=== PATIENT | male | born 1935 | race Caucasian/White ===

== ENCOUNTER 2019-02-22 07:55 | Inpatient (IN) | payer OTHER ==
[~2019-02-22] VITALS: Ht 170.2 cm; Wt 54.6 kg
[2019-02-22 08:11] VITALS: Ht 170.2 cm; Wt 54.6 kg
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
--- NOTE | 2019-02-22 08:23 | NUR ---
PT GIVEN TWO WARM BLANKETS FOR COLD EXTREMITIES. CALL LIGHT IN REACH. REITERATED TO PT THAT HE IS ON A HOLD - PT VERBALIZED UNDERSTANDING.
--- NOTE | 2019-02-22 08:46 | NUR ---
lab at bedside for blood draw
[2019-02-22 09:03] LABS: BASOPHIL % 0.7 % (0-2); PLATELET COUNT 183 x10^3mcL (130-400); RED CELL DISTRIBUTION WIDTH 13.2 % (11.5-14.5)
--- NOTE | 2019-02-22 09:15 | NUR ---
BREAKFAST TRAY PLACED TO PT BEDSIDE TABLE
[2019-02-22 09:18] LABS: CALCIUM 9.1 mg/dL (8.5-10.1); CARBON DIOXIDE 22.9 mmol/L (21-32); CHLORIDE SERUM 108 mmol/L (98-107); CREATININE SERUM 1.2 mg/dL (0.7-1.3); GLUCOSE SERUM 123 mg/dL (74-106); POTASSIUM SERUM 4.3 mmol/L (3.5-5.1); SODIUM SERUM 144 mmol/L (136-145)
--- NOTE | 2019-02-22 09:18 | NUR ---
PT FEEDING SELF APPROPRIATELY
[2019-02-22 09:22] LABS: ALBUMIN 3.7 g/dL (3.4-5.0); ALKALINE PHOSPHATASE 63 U/L (46-116); ALT/SGPT 19 U/L (16-63); AST/SGOT 33 U/L (15-37); BILIRUBIN TOTAL 1.4 mg/dL (0.20-1.00); TOTAL PROTEIN, SERUM 6.8 g/dL (6.4-8.2)
--- NOTE | 2019-02-22 09:47 | NUR ---
PT STILL EATING BREAKFAST TRAY FOOD AND PREPPING COFFEE FOR HIMSELF
--- NOTE | 2019-02-22 10:20 | NUR ---
PT ATE 100% OF BREAKFAST TRAY AND FULL AMT OF FLUIDS GIVEN
--- NOTE | 2019-02-22 10:20 | NUR ---
BED PLACED TO LOW FOWLERS POSITION. CALL LIGHT REMAINS IN REACH.
--- NOTE | 2019-02-22 10:25 | NUR ---
PER MOM, PT HAS BEEN USING DRUGS SINCE AGE 14, STARTING W/ PILLS & MARIJUANA. 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 NO PSYCH DX BUT WAS IN "[facility] IN [place]" WHEN [facility]. "NO ONE HAS HELPED HIM." PT REFUSING TO GO TO REHAB. MOTHER STATES HE CAME HOME EARLY THIS AM & WOKE HER UP. STATES "IT GOES IN A CYCLE." PT HAS "FEAR IN HIS EYES, CLUTCHED HIS CHEST & THEN HIS ABDOMEN, & HAS EPISODES OF PANTING." MOTHER STATES PT USED IN JUNE, STOPPED & WAS WORKING, & RELAPSED AGAIN 4 WEEKS AGO. OTHER FAMILY @ BEDSIDE STATES HE HAS BEEN DRINKING, TYPICALLY "TALL CANS." MOTHER STATES HE "SHUTS DOWN." MOTHER CALLED 911 THIS AM BECAUSE OF THE ABOVE & PT LOOKED PALE. MOTHER STATES HE HASN'T BEEN EATING OR DRINKING MUCH, & IS A HEAVY SMOKER. MSE BY DR. OTERO.
[2019-02-22 11:32] LABS: UA SPECIFIC GRAVITY >=1.030 (1.005-1.035); microscopic required? YES; urine erythrocyte 2+ (NEGATIVE)
--- NOTE | 2019-02-22 11:41 | NUR ---
AWAITING BLOOD CULTURE DRAW FOR ROCEPHIN TO BE STARTED. PT TAKEN TO CT SCAN VIA [facility] AT THIS TIME. PT WAS INCONTINENT TO BED SIL. CHANGED, CLEANED, AND TURNED TO L SIDE
--- NOTE | 2019-02-22 12:50 | NUR ---
PT SLEEPING, EASY TO AROUSE AWAKE; NAD NOTED
[2019-02-22 13:45] VITALS: BP 129/55
--- NOTE | 2019-02-22 14:18 | NUR ---
REPORT GIVEN TO SANDRA AGUILAR
[2019-02-22 15:11] VITALS: BP 126/62
--- NOTE | 2019-02-22 15:15 | NUR ---
RECEIVED PT FROM ED VIA LATIA. ORIENTED PT TO ROOM AND SURROUNDINGS. IV NOTED TO LFA PATENT AND INTACT. ENDORSED PT TO PRIMARY NURSE SANDRA
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
[2019-02-22 17:15] VITALS: BP 131/57
--- NOTE | 2019-02-22 19:01 | NUR ---
BED ALARM ON AND PATIENT GOT UP AND PULLED OUT THE IV. REMOVED THE DRESSING AND RESTARTED AFTER STAFF CLEANED THE BLOOD AND CHANGED HIM. PATIENT HAS BEEN INCONTINENT. SPOLE FIR A WHILE AND PTIENT STATES HE WAS FOR 27 YEARS TO THE LOVE OF HIS LIFE4. THEY DID NTO HAVE ANY CHILDREN.
--- NOTE | 2019-02-22 19:15 | NUR ---
REPORT RECEIVED FROM DAY SHIFT RN. PATIENT WAS SEEN AND IS RESTING COMFORTABLY IN BED. NO DISTRESS NOTED. BREATHING EVEN AND UNLABORED ON ROOM AIR. NO SOB OR RESP DISTRESS NOTED. A/OX2, CONFUSED. DENIES CHEST PAIN/PRESSURE. NO C/O PAIN. IV TO THE LFA INFUSING WELL. PATENT AND INTACT. NO REDNESS OR SWELLING NOTED. BED ALARM ON. ROOM NEAR NURSES STATION. COMFORT AND SAFETY MEASURES IN PLACE. BED IS LOCKED AND IN THE LOWEST POSITION. SIDE RAILS UP X2. CALL LIGHT IS WITHIN REACH. WILL CONTINUE TO MONITOR.
--- NOTE | 2019-02-22 20:30 | NUR ---
PATIENT IS TRYING TO GET OUT OF BED. AGITATED. NOTIFIED DR BERMAN. AWAITING ORDERS.
[2019-02-22 21:17] VITALS: BP 139/53
--- NOTE | 2019-02-22 23:24 | NUR ---
SAW MISSED LEVAQUIN DOSE AT 1700. NOTFIED DR BERMAN. SHE SAID IT'S OKAY THAT THE FRIST DOSE IS STARTED TOMORROW AT 1700.
--- NOTE | 2019-02-23 00:06 | NUR ---
RESTING IN BED QUIETLY. NO AGITATION NOTED. BREATHING EVEN AND UNLABORED ON ROOM AIR. NO SOB OR RESP DISTRESS NOTED. NO S/S OF PAIN NOTED. IVF INFUSING WELL. PATENT AND INTACT. NO REDNESS OR SWELLING NOTED. SAFETY MEASURES IN PLACE. NO DISTRESS NOTED. CALL LIGHT IS WITHIN REACH. ROOM NEAR NURSES STATION. WILL CONTINUE TO MONITOR.
--- NOTE | 2019-02-23 00:21 | NUR ---
RESTING IN BED WITH EYES CLOSED. NO DISTRESS NOTED. BREATHING EVEN AND UNLABORED ON ROOM AIR. NO SOB OR RESP DISTRESS NOTED. IVF INFUSING WELL. PATENT AND INTACT. SAFETY MEASURES IN PLACE. CALL LIGHT IS WITHIN REACH. WILL CONTINUE TO MONITOR.
--- NOTE | 2019-02-23 02:30 | NUR ---
CLEANED AND CHANGED PATIENT WAS JAC WOODARD. ALSO CHANGED BEDDING. TOLERATED WELL. REPOSITIONED TO COMFORT. NO DISTRESS NOTED. DENIES PAIN. SAFETY MEASURES IN PLACE. CALL LIGHT IS WITHIN REACH. WILL CONTINUE TO MONITOR.
[2019-02-23 05:38] VITALS: BP 127/52
[2019-02-23 06:34] LABS: BASOPHIL % 1.2 % (0-2); PLATELET COUNT 155 x10^3mcL (130-400); RED CELL DISTRIBUTION WIDTH 13.3 % (11.5-14.5)
--- NOTE | 2019-02-23 06:35 | NUR ---
RESTED THROUGHOUT THE NIGHT. NO ACUTE CHANGES NOTED. BREATHING EVEN AND UNLABORED ON ROOM AIR. NO SOB OR RESP DISTRESS NOTED. DENIES CHEST PAIN/PRESSURE. NO C/O PAIN THROUGHOUT THE NIGHT. IV TO THE LFA INFUSING WELL. PATENT AND INTACT. NO REDNESS OR SWELLING NOTED. CONFUSED AND FORGETFUL. SAFETY MEASURES IN PLACE. CALL LIGHT IS WITHIN REACH. WILL ENDORSE CARE TO DAY SHIFT RN
[2019-02-23 06:47] LABS: CALCIUM 8.8 mg/dL (8.5-10.1); CARBON DIOXIDE 24.5 mmol/L (21-32); CHLORIDE SERUM 111 mmol/L (98-107); CREATININE SERUM 1.1 mg/dL (0.7-1.3); GLUCOSE SERUM 77 mg/dL (74-106); MAGNESIUM 1.7 mg/dL (1.8-2.4); POTASSIUM SERUM 4.9 mmol/L (3.5-5.1); SODIUM SERUM 145 mmol/L (136-145)
--- NOTE | 2019-02-23 07:43 | NUR ---
A+OX2, NO RESPRIATORY DISTRESS NOTED, CONFUSED, SITTER AT BEDSIDE, MEDSURG, PULSES MODERATE AND EQUAL MARISOL, NO EDEMA NOTED, LUNG SOUNDS CTA, TOELRATING RA, BOWEL SOUNDS ACTIVE, INCONTINENT OF STOOL AND URINE, GENERALIZED WEAKNESS, ABRASION TO COXXYX, BUE, BLE, ERYTHEMA TO COCCYX WITH OPTIFOAM CDI, IV IN LFA WITH NS @ 100 ML/HR, SITE WNL.
[2019-02-23 09:07] VITALS: BP 116/59
--- NOTE | 2019-02-23 09:13 | NUR ---
PT RESTING IN BED, NO RESPIRATORY DISTRESS NOTED, DENIES PAIN, SITTER AT BEDSIDE, CALL LIGHT WITHIN REACH.
--- NOTE | 2019-02-23 11:39 | NUR ---
PT RESTING IN BED, NO RESPIRATORY DISTRESS NOTED, DENIES PAIN, SITTER AT BEDSIDE, CALL LIGHT WITHIN REACH.
--- NOTE | 2019-02-23 13:22 | NUR ---
PT VOIDED, LINENS AND GOWN CHANGED, NO RESPRIATORY DISTRESS NOTED, SITTER AT BEDSIDE. CALL LIGHT WITHIN REACH.
--- NOTE | 2019-02-23 14:18 | NUR ---
PT RESTING IN BED, NO RESPIRATORY DISTRESS NOTED, DENIES PAIN, SITTER AT BEDSIDE, CALL LIGHT WITHIN REACH.
[2019-02-23 16:35] VITALS: BP 152/59
--- NOTE | 2019-02-23 17:11 | NUR ---
PT RESTING IN BED, NO RESPIRATORY DISTRESS NOTED, DENIES PAIN, SITTER AT BEDSIDE, CALL LIGHT WITHIN REACH.
--- NOTE | 2019-02-23 18:43 | NUR ---
PT RESTING IN BED, NO RESPIRATORY DISTRESS NOTED, DENIES PAIN, SITTER AT BEDSIDE, CALL LIGHT WITHIN REACH.
--- NOTE | 2019-02-23 19:22 | NUR ---
ENDORSED CARE TO MANJULA AGUILAR.
--- NOTE | 2019-02-23 19:30 | NUR ---
PT SEEN, HOB AT 60 DEGREE, ALERT AND ORIENTED TO SELF AND , CONFUSED WITH YEAR AND PLACE, IMPARIED OF RECENT AND REMOTE MEMORY, GARBLED SPEECH, BREATHING EVEN AND UNLABORED, LUNG SOUNDS CLEAR BUT DIMINISHED AT BASE, ON ROOM AIR, PT WITH DIFFICULTY SWALLOWING AT TIMES, GENERALIZED WEAKNESS, IVF INFUSING WELL, PULSES PALPABLE, NO EDEMA NOTED, ABD SOFT AND FLAT WITH ACTIVE BS, INCONTINENT, ABRASION TO BUE, BLE AND COCCYX AREA, BLANCHABLE REDNESS TO COCCYX AREA, OPTIFORM IN PLACE, SITTER AT BEDSIDE.
--- NOTE | 2019-02-23 21:09 | NUR ---
PT IS VERY RESTLESS AND EASILY AGITATED, ALSO TRYING TO GET OUT OF BED, DR SANCHEZ MADE AWARE, NEW ORDER RECEIVED FOR HALDOL 2.5MG IM X 1, MED GIVEN, PT ALSO STATED THAT HE FEELS N&V, ZOFRAN GIVEN.
[2019-02-23 21:45] VITALS: BP 152/56
--- NOTE | 2019-02-23 22:43 | NUR ---
PT STILL VERY RESTLESS AFTER HALDOL 2.5MG VIA IM, DR SANCHEZ MADE AWARE, AWAITING NEW ORDER.
--- NOTE | 2019-02-24 00:30 | NUR ---
PT ASLEEP AND APPEARS COMFORTABLE AFTER MEDICATED WITH HALDOL 2.5MG IM, BREATHING EVEN AND UNLABORED ON ROOM AIR, NO DISTRESS NOTED, WILL KEEP TO MONITOR.
--- NOTE | 2019-02-24 06:00 | NUR ---
PT AWAKE AND RESTLESS IN BED, SLEPT THROUGHOUT THE NIGHT AFTER MEDICATED WITH HALDOL IM, DR SANCHEZ MADE AWARE OF PT IS RESTLESS AGAIN THIS MORNING, NEW ORDER RECEIVED FOR HALDOL IM, MEDS GIVEN PER EMAR, MORNING CARE GIVEN, SITTER AT BEDSIDE, NO DISTRESS NOTED, WILL KEEP TO MONITOR.
[2019-02-24 06:05] VITALS: BP 133/54
[2019-02-24 06:52] LABS: BASOPHIL % 1.1 % (0-2); PLATELET COUNT 164 x10^3mcL (130-400); RED CELL DISTRIBUTION WIDTH 13.3 % (11.5-14.5)
[2019-02-24 07:06] LABS: CALCIUM 8.8 mg/dL (8.5-10.1); CARBON DIOXIDE 24.7 mmol/L (21-32); CHLORIDE SERUM 108 mmol/L (98-107); GLUCOSE SERUM 92 mg/dL (74-106); POTASSIUM SERUM 3.8 mmol/L (3.5-5.1); SODIUM SERUM 142 mmol/L (136-145)
--- NOTE | 2019-02-24 07:09 | NUR ---
REPORT GIVEN TO JAMIE-RN, ALL QUESTIONS ANSWERED AND CONCERNS ADDRESSED.
--- NOTE | 2019-02-24 07:54 | NUR ---
A+OX1, NO RESPRIATORY DISTRESS NOTED, CONFUSED, FORGETFUL, GARBLED SPEECH, MEDSURG, PULSES MODERATE AND EQUAL MARISOL, NO EDEMA NOTED, LUNG SOUNDS CTA, TOELRATING RA, BOWEL SOUNDS ACTIVE, INCONTINENT OF STOOL AND URINE, GENERALIZED WEAKNESS, ABLE TO TURN AND REPOSITION SELF, ABRASION AND ERYTHEMA TO COCCYX WITH OPTIFOAM, ABRASION TO BUE AND BLE, IV IN LFA WITH NS @ 100 ML/HR, SITE WNL. SITTER AT BEDSIDE.
[2019-02-24 08:30] VITALS: BP 108/60
--- NOTE | 2019-02-24 09:26 | NUR ---
PT AGITATED, NO RESPRIATORY DISTRESS NOTED, SITTER AT BEDSIDE, CALL LIGHT WITHIN REACH.
--- NOTE | 2019-02-24 12:11 | NUR ---
1. Recommend Enusre high protein BID with regular diet. 2. Recommend swallow evaluation. Discussed recommendations with ROSARIO Abreu.
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
--- NOTE | 2019-02-24 13:40 | NUR ---
PT RESTING IN BED, NO RESPIRATORY DISTRESS NOTED, APPEARS TO BE SLEEPING, CALL LIGHT WITHIN REACH. SITTER AT BEDSIDE.
--- NOTE | 2019-02-24 13:51 | NUR ---
PHYSICAL THERAPY NOTE ATTEMPTED FOR EVAL REQUESTED; PATIENT IS SLEEPY AND COULD NOT PARTICIPATE FOR MOBILITY ASSESSMENT AT THIS TIME
--- NOTE | 2019-02-24 14:59 | NUR ---
PT RESTING IN BED WITH BOTH EYES CLOSED, APPEARS TO BE SLEEPING, EASILY AROUSED, SITTER AT BEDSIDE, CALL LIGHT WIHTIN REACH.
--- NOTE | 2019-02-24 16:17 | NUR ---
PT WAS SEEN FOR DYSPHAGIA. PT WAS ABLE TO SAFELY SWALLOW MS DIET WITH CHOPPED MEAT AND VEG WITH NECTAR THICK LIQUID. PT HAD MILD COUGH FOR THIN LIQUID. PT HAD MILD DIFFICULTY WITH MASTICATION SKILLS FOR REGULAR DIET. RECOMMENDATION MS DIET WITH CHOPPED MEAT AND VEG WITH NECTAR THICK LIQUID 1:1 SUPERVISION
--- NOTE | 2019-02-24 16:35 | NUR ---
CALLED AND SPOKE TO SÁNCHEZ(N.P.) AND MADE HER AWARE OF SPEECH THERPAIST RECOMMENDATION AND EVAL, NEW ORDER RECEIVED MECHANICAL DIET WITH FINELY CHOPPED MEAT W/ NECTAR THICK LIQD. JAMIE RN AWARE OF ABOVE.
--- NOTE | 2019-02-24 16:46 | NUR ---
SWALLOW EVAL COMPLETE. PER RAUDEL SPEECH THERAPIST, PT TO HAVE MECH SOFT CHOPPED DIET WITH NECTAR THINK LIQUID. PT TO BE FED AND TO HAVE VERY SMALL BITES AND SMALL SIPS AT A TIME. PT RESTING IN BED, NO RESPIRATORY DISTRESS NOTED, IN NO APPARANT PAIN, SITTER AT BEDSIDE.
[2019-02-24 17:15] VITALS: BP 128/44
--- NOTE | 2019-02-24 18:38 | NUR ---
PT REQUESTING TO AMBULATE TO BATHROOM. MANAGER RN CASE AND I ATTEMPTED TO ASSIST PT TO BATHROOM AND PT COULD NOT STAND ON HIS OWN. PT STATED HE FELT DIZZY AND WEAK. PT PLACED BACK IN BED AND PLACED ON BED SHEA. NO RESPRIATORY DISTRESS NOTED, CALL LIGHT WITHIN REACH, SITTER AT BEDSIDE.
--- NOTE | 2019-02-24 19:14 | NUR ---
ENDORSED CARE TO MANJULA AGUILAR.
--- NOTE | 2019-02-24 19:43 | NUR ---
PT SEEN, RESTING IN BED, ALERT AND ORIENTED TO SELF AND , CONFUSED WITH YEAR AND PLACE, IMPARIED OF RECENT AND REMOTE MEMORY, GARBLED SPEECH, BREATHING EVEN AND UNLABORED, LUNG SOUNDS CLEAR BUT DIMINISHED AT BASE, ON ROOM AIR, PT WITH DIFFICULTY SWALLOWING AT TIMES, ASP PRECAUTION IN PLACE, GENERALIZED WEAKNESS, IVF INFUSING WELL, PULSES PALPABLE, NO EDEMA NOTED, ABD SOFT AND FLAT WITH ACTIVE BS, INCONTINENT, ABRASION TO BUE, BLE AND COCCYX AREA, BLANCHABLE REDNESS TO COCCYX AREA, OPTIFORM IN PLACE, SITTER AT BEDSIDE.
[2019-02-24 20:35] VITALS: BP 113/50
--- NOTE | 2019-02-24 20:44 | NUR ---
PT STILL RESTLESS AND EASILY AGITATED IN BED, SEROQUEL 25 MG VIA ORAL ADMINISTERED, HOB AND ASP PRECAUTION IN PLACE, NO S&S OF ASP, SITTER AT BEDSIDE.
[2019-02-25 05:15] VITALS: BP 146/54
--- NOTE | 2019-02-25 06:00 | NUR ---
PT ASLEEP BUT EASILY AROUSABLE, SLEPT MOST OF NIGHT AFTER MEDICATED WITH SEROQUEL PO, PT STILL GETS RESTLESS AND AGITATED AT TIMES, INCONTINENT, GOOD TAMIKO CARE GIVEN, IVF INFUSING WELL, SIDE RAILS UP, FALL PRECAUTION IN PLACE, NO DISTRESS NOTED, WILL KEEP TO MONITOR.
[2019-02-25 06:39] LABS: BASOPHIL % 1.1 % (0-2); PLATELET COUNT 158 x10^3mcL (130-400); RED CELL DISTRIBUTION WIDTH 13.1 % (11.5-14.5)
--- NOTE | 2019-02-25 07:16 | NUR ---
BEDSIDE HANDOFF REPORT GIVEN TO LEONIDAS-LAUREN, ALL QUESTIONS ANSWERED AND CONCERNS ADDRESSED.
[2019-02-25 07:26] LABS: CALCIUM 8.3 mg/dL (8.5-10.1); CARBON DIOXIDE 27.5 mmol/L (21-32); CHLORIDE SERUM 108 mmol/L (98-107); CREATININE SERUM 1.1 mg/dL (0.7-1.3); GLUCOSE SERUM 68 mg/dL (74-106); MAGNESIUM 1.8 mg/dL (1.8-2.4); POTASSIUM SERUM 4.1 mmol/L (3.5-5.1); SODIUM SERUM 144 mmol/L (136-145)
--- NOTE | 2019-02-25 07:30 | NUR ---
RECEIVED PATIENT RESTING IN BED, NO ACUTE DISTRESS NOTED. PATIENT DENIES PAIN. DENIES SOB, ON ROOM AIR. PATIENT IS ALERT/ ORIENTATED TO SELF. GENERALIZED WEAKNESS NOTED. NS IV INFUSING TO RIGHT FA, IV SITE CDI & PATENT, NO S/S OF INFILTRATION. CALL LIGHT WITHIN REACH, BED IN LOW POSITION, SITTER AT BEDSIDE FOR SAFETY PRECAUTION. WILL CONTINUE TO MONITOR FOR CHANGES.
--- NOTE | 2019-02-25 08:24 | NUR ---
PHYSICAL THERAPY AT BEDSIDE.
[2019-02-25 08:42] VITALS: BP 146/52
--- NOTE | 2019-02-25 13:18 | NUR ---
PATIENT RESTING IN BED, WATCHING TV. NO ACUTE DISTRESS NOTED, PATIENT DENIES PAIN. SITTER AT BEDSIDE FOR SAFETY PRECAUTION. CALL LIGHT WITHIN REACH, BED IN LOW POSITION. ALL NEEDS MET AT THIS TIME.
[2019-02-25 15:36] VITALS: BP 146/52
--- NOTE | 2019-02-25 17:26 | NUR ---
PATIENT RESTING IN BED, NO ACUTE DISTRESS NOTED. PATIENT DENIES PAIN. IV TO RFA SALINE LOCK, NO S/S OF INFILTRATION. CALL LIGHT WITHIN REACH, BED IN LOW POSITION. SITTER AT BEDSIDE FOR SAFETY PRECAUTION. WILL CONTINUE TO MONITOR AND ENDORSE REPORT.
[2019-02-25 18:12] VITALS: BP 127/54
[2019-02-25 20:00] VITALS: BP 139/57
--- NOTE | 2019-02-25 20:08 | NUR ---
Awake and verbally responsive. Alert and oriented x1. Denies pain. Denies n/v. No respiratory distress noted on room air. Sitter at the bedside. Will cont.to monitor.
--- NOTE | 2019-02-26 04:17 | NUR ---
Resting in bed. No significant change in condition noted. Afebrile. No cues of pain. In no apparent distress. Safety maintained.
[2019-02-26 06:18] VITALS: BP 157/52
[2019-02-26 07:29] LABS: CALCIUM 8.3 mg/dL (8.5-10.1); CARBON DIOXIDE 24.8 mmol/L (21-32); CHLORIDE SERUM 108 mmol/L (98-107); CREATININE SERUM 1.1 mg/dL (0.7-1.3); GLUCOSE SERUM 76 mg/dL (74-106); POTASSIUM SERUM 3.9 mmol/L (3.5-5.1); SODIUM SERUM 142 mmol/L (136-145)
--- NOTE | 2019-02-26 07:30 | NUR ---
RECEIVED PT. IN BED AWAKE, ALERT. PT. IS CONFUSED. PT. IS ONLY ORIENTED TO PERSON. NO SOB, NO N/V NOTED. PT. DENIES ANY PAIN AT THIS TIME. NS RUNNING AT 100 CC/HR VIA IV SITE AT R FA. SCD TO BLE MAINTAINED. BED IN LOW POS., CALL LIGHT WITHIN REACH. SIDE RAILS UP X3.
[2019-02-26 07:50] LABS: BASOPHIL % 1.2 % (0-2); PLATELET COUNT 169 x10^3mcL (130-400); RED CELL DISTRIBUTION WIDTH 13.4 % (11.5-14.5)
[2019-02-26] MEDS ORDERED: LEVAQUIN750 MG PO (10:05)
[2019-02-26 10:26] VITALS: BP 149/59
--- NOTE | 2019-02-26 13:06 | NUR ---
PT. IS RESTLESS AND AGITATED. PT. CONSTANTLY ATTEMPTS TO GET OUT OF BED AND KEEPS PULLING ON THE IV LINE AND GOWN. SEROQUEL 25MG PO GIVEN.
--- NOTE | 2019-02-26 14:01 | NUR ---
PHYSICAL THERAPY DAILY NOTES CO-SIGN All documentation done by the Composition Molder for 02/26/19 has been reviewed. I agree with the documentation. Reviewed/Co-Signed by: Trice Braga PT Documentation Done by: AKIKO HAWLEY PTA
--- NOTE | 2019-02-26 14:47 | NUR ---
PT. CONTINUED TO BE AGITATED AND STILL ATTEMPTING TO GET OUT BED. PT. CONSTANTLY REPEATED "I NEED TO GO NOW." ATIVAN 0.5MG IV GIVEN.
[2019-02-26 17:30] VITALS: BP 141/59
--- NOTE | 2019-02-26 18:16 | NUR ---
PT. APPEARS CALM IN BED AT THIS TIME. WILL CONTINUE TO MONITOR.
--- NOTE | 2019-02-26 19:35 | NUR ---
RECEIVED PT IN BED AWAKE, ALERT BUT ORIENTED TO PERSON ONLY. FRIENDS AND STEP-DAUGHTER PRESENT. LUNG SOUNDS CLEAR. NO SOB ON ROOM AIR. PT APPEARS CALM AT THIS TIME. BOWEL SOUNDS ACTIVE. HE HAS NO C/O PAIN AT THIS TIME. CALL LIGHT W/IN REACH. SITTER AT BEDSIDE.
[2019-02-26 20:28] VITALS: BP 131/61
--- NOTE | 2019-02-27 00:08 | NUR ---
INFORMED DR. SANCHEZ THAT PT'S STEP-DAUGHTER MARIO SCANLON IS REQUESTING THAT SHE BE CALLED BY THE DOCTOR ANYTIME TOMORROW. PER DR. SANCHEZ SHE WILL RELAY THE MESSAGE TO THE UX MANAGER TOMORROW.
--- NOTE | 2019-02-27 04:15 | NUR ---
IV SITE TO RTFA W/ MILD SWELLING. IV REMOVED. STARTED NEW IV G22 ON THE RT HAND. PT CALM AND TOLERATED PROCEDURE WELL.
[2019-02-27 05:13] VITALS: BP 154/65
--- NOTE | 2019-02-27 05:14 | NUR ---
PT SLEPT AT [facility]. HE WAS CALM THROUGHOUT THE NIGHT ALTHOUGH HE REMAINS CONFUSED. NO EPISODE OF RESP. DISTRESS AND REAMINS ON ROOM AIR. HE HAD NO C/O PAIN. PT HAD NO BM NOTED THIS SHIFT. IVF NS INFUSING WELL VIA NEW IV ON THE RT HAND. ALL NEEDS ATTENDED TO. SITTER AT BEDSIDE FOR SAFETY.
--- NOTE | 2019-02-27 08:05 | NUR ---
RECEIVED PATIENT FROM LAUREN RESENDEZ. PATIENT SEATED IN BED, EATING BREAKFAST TRAY. TOLERATING. PATIENT ALREADY CLEARED FOR DISCHARGE TODAY BY COMPRESSED GASES TESTER SÁNCHEZ, WILL CONTACT FAMILY TODAY. CALL LIGHT IN REACH, SITTER AT BEDSIDE.
--- NOTE | 2019-02-27 14:52 | NUR ---
PATIENT IN BED AT THIS TIME, RESTLESS. VERBALLY AGGRESSIVE TO NA AND STAFF. FAMILY FRIEND AND HER SON AT BEDSIDE. SPOKE WITH ADDIE EUGENE AND ADDIE AHN. PATIENT ABLE TO PIVOT ONTO BEDSIDE COMMODE AND RETURNED TO BED. CALL LIGHT IN REACH AND SITTER AT BEDSIDE.
[2019-02-27 15:46] VITALS: BP 150/68
[2019-02-27 16:24] VITALS: BP 150/68
--- NOTE | 2019-02-27 17:24 | NUR ---
TRANSFER REPORT GIVEN TO NURSE XENIA. CALLED PLACE TO [facility] FOR VERBAL CONSENT OF TRANSFER, NO ANSWER, VM LEFT. WILL ATTEMPT TO DIAL AGAIN. PATIENT IN BED AT THIS TIME, NO COMPLAINTS AT THIS TIME. SITTER AT BEDSIDE.
--- NOTE | 2019-02-27 18:13 | NUR ---
VERBAL/TELEPHONE CONSENT OBTAINED BY [facility]ELSON [facility]ELL NURSE AND RN KELLY. PATIENT IN BED READY FOR TRANSPORT. NO TRANSPORT TEAM AT THIS TIME. WILL ENDORSE TO ONCOMING NURSE IF NOT ARRIVED BY [facility]. CALL LIGHT IN REACH, SITTER AT BEDSIDE.
--- NOTE | 2019-02-27 19:25 | NUR ---
[facility] HAS ARRIVED TO TRANSPORT PATIENT TO [facility]. PATIENT WITH BELONGINGS, TRANSFER PACKET GIVEN TO registered vascular technologist (rvt). IV ACCESS RH REMAINS. SIGNATURES OBTAINED W TELEPHONE CONSENT FROM [facility]. PATIENT OFF UNIT.
== END 2019-02-27 19:17 | DRG 193 ==
LOC: ED 07:55 → MU 12:31
PROVIDERS: Emergency Medicine; ADMIT Internal Medicine
DX: J18.9 Pneumonia, unspecified organism (principal); G93.41 Metabolic encephalopathy; N39.0 Urinary tract infection, site not specified; F03.90 Unspecified dementia, unspecified severity, without behavioral disturbance, psychotic disturbance, mood disturbance, and anxiety; Z68.22 Body mass index [BMI] 22.0-22.9, adult
CPT/HCPCS: 82962; 92526-GN; 92610-GN; 97110-GP; 97116-GP; 97530-GP; G0378; G0480; J0696; J1200; J1630; J1956; J2060; J2405; J7030; J7060; Q0092